=== PATIENT | female | born 1965 | race Caucasian/White ===

== ENCOUNTER 2018-07-05 06:00 | Day surgery (SDC) | payer OTHER ==
[~2018-07-05] VITALS: Ht 170.2 cm; Wt 100.7 kg
[~2018-07-05 06:00] MED LIST: PAXIL PO; SYNTH PO; VASOTEC10 MG
[2018-07-06] MEDS ORDERED: PERCOCET 5-3251 EACH PO (09:40)
[2018-07-06] MEDS ORDERED: SYNTHROID175 MCG PO (09:41)
[2018-07-06] MEDS ORDERED: CALCITRIOL0.5 MCG PO (09:42)
== END 2018-07-06 10:00 | disposition home or self-care (01) ==
LOC: CIR.AMB 06:00 → SURH 07:00 → EDSTATUS 07:30 → SURH 07:30 → O/R 19:10 → CIR.AMB 07-06 10:00 → SURH 07-06 11:40 → O/R 07-06 11:40
DX: D34 Benign neoplasm of thyroid gland (principal)